=== PATIENT | female | born 1945 | race Caucasian/White ===

== ENCOUNTER → 2016-07-10 | Outpatient (CLI) | payer MEDICARE, OTHER ==
[2016-07-10 16:27] LABS: ANION GAP 10.3 (10.0-19.0); CALCIUM 10.1 mg/dL (8.5-10.5); CREATININE 1.1 mg/dL (0.5-1.1); MAGNESIUM 1.9 mg/dL (1.8-2.6); PHOSPHORUS 2.5 mg/dL (2.5-4.9); POTASSIUM 4.3 mMol/L (3.7-5.1)
== END ==
LOC: LCNC 16:05
PROVIDERS: Internal Medicine Interventional Cardiology
DX: R00.2 Palpitations (principal); R53.82 Chronic fatigue, unspecified

== ENCOUNTER → 2016-07-13 | Outpatient (CLI) | payer MEDICARE, OTHER ==
--- NOTE | ~2016-07-13 | ESTC ---
Cardiac Perfusion Imaging Demographics Patient Name SAMI Curran Gender Female Patient Number [id number] Race Visit Number [id number] Ethnicity Corporate ID Room Number Accession Number [id number] Height 61 inches Date of 1945 Weight 163 pounds Interpreting Kika Chacon MD Date of study 07/13/2016 Physician Supervising /FEDERICO Kaye NM Technologist Sánchez Corona APRN Ordering Physician Kika Chacon MD Stress research laboratory technician Stress ECG Reading Melida Kaye Nurse Les Ibarra Physician LORA RN Medications Reviewed with Patient prior to Procedure. Procedure Procedure Type: Nuclear Stress Test:Pharmacological, Lexiscan, Cardiolite Stress Test Procedure Start time: 07/13/2016 09:30 Indications: Chest pain and Hypertension. Risk Factors The patient risk factors include:former tobacco use, hypercholesterolemia, treated hypertension, orally-treated diabetes mellitus, dyslipidemia and ( years not smokin). Conclusions Summary Cardiolite SPECT images demonstrates homogenous uptake of radioactive tracer. No evidence of inducible defect and no evidence of underlying fixed defect. Normal TID ratio of 0.95 Gated images demonstrate normal left ventricular systolic function without inducible wall motion abnormalities. LVEF is 79% Stress Protocols Resting ECG RSR without ST or T wave changes. Resting HR:77 bpm Resting BP:181/77 mmHg Pre-stress physical exam: Patient assessed by LORA Puente prior to testing. Stress Protocol:Pharmacologic Peak HR:105 bpm HR response: Appropriate Peak BP:175/74 mmHg BP response: Appropriate Predicted HR: 150 bpm HR/BP product:80401 % of predicted HR: 70 Reason for termination:Infusion complete ECG Findings Sinus tachycardia. Arrhythmias No rhythm abnormality. Symptoms No symptoms with Lexiscan infusion. Stress Interpretation Appropriate hemodynamic response to Lexiscan. No significant ST-T wave changes with Lexiscan. ECG portion is negative for ischemia by diagnostic criteria. Stress supervision and interpretation provided by Maye Montez APRN . Imaging Results Summed scores - Summed stress score: 7 - Summed rest score: 5 - Summed difference score: 2 Stress ejection Ejection fraction:79 % EDV :48 ml ESV :10 ml Stroke volume :38 ml LV mass :78 gr Imaging Protocols Rest Stress Isotope:Tc99m Sestamibi IV Isotope dose:36.5 mCi Isotope dose:12.3 mCi Date:07/13/2016 10:23 Date:07/13/2016 07:40 Technique: SPECT Technique: Gated Supine SPECT Supine Scan Time:45-60 minutes post Scan Time:45-60 minutes post injection injection Procedure Medications - Regadenoson (Lexiscan) 0.4 mg IV over 10-15 sec. I.V. 0.4 mg. Medical History Admission Data Admission date: 07/13/2016 Admission Time: 07:06 Hospital Status: Outpatient. Signatures dtt: Oswaldo Anand (cardio) dtd: 07/13/16 0930 Physician Self Edit
== END | disposition disaster alternative care site (69) ==
LOC: GRAD 07-03 07:00
DX: R07.9 Chest pain, unspecified (principal)
CPT/HCPCS: A9500; J2785